=== PATIENT | male | born 1955 | race Caucasian/White ===

== ENCOUNTER 2020-02-20 12:00 | Outpatient (CLI) | payer OTHER ==
--- NOTE | 2020-02-20 12:35 | RAD ---
EXAM: CHEST TWO VIEWS 02/20/2020 12:32 PM HISTORY: Inflammatory polyarthropathy COMPARISON: None. FINDINGS: Lungs: Scarring involving both upper lobes is similar appearing with slight elevation of the hilar r egions. No acute abnormality demonstrated. The lungs remain hyperinflated. Heart: Normal in size and contour. Pulmonary Vessels: Normal. Costophrenic Angles: Clear. Pneumothorax: None. Osseous Structures: Intact. Additional Findings: None. IMPRESSION: No significant acute intrathoracic disease.
== END 2020-02-20 12:01 | disposition home or self-care (01) ==
LOC: BICRAD 12:00
PROVIDERS: ATTEND Internal Medicine Rheumatology
DX: M06.4 Inflammatory polyarthropathy (principal)
CPT/HCPCS: 71046

== ENCOUNTER 2023-03-22 10:59 | Inpatient (IN) | payer MEDICARE ==
[2023-03-22] MEDS ORDERED: dilTIAZem 125 MG/25 ML SDV ONE (11:15)
[2023-03-22] MEDS ORDERED: dilTIAZem 25 MG/5 ML VIAL ONE (11:15)
[2023-03-22 11:31] LABS: #Basophils 0.1 thou/uL (0.0-0.2); #Eosinphils 0.3 thou/uL (0.0-0.7); #Monocytes 1.2 thou/uL (0.11-0.59); #Neutrophils 8.9 thou/uL (1.40-6.50); %Basophils 0.6 % (0.0-1.0); %Eosinophils 2.7 % (0.0-10.0); %Lymphocytes 8.3 % (21.0-51.0); %Monocytes 10.1 % (0.0-10.0); %Neutrophils 77.9 % (42.0-75.0); Hemoglobin 14.2 g/dL (14.0-18.0); Mean Corpuscular HGB CONC 32.6 g/dL (32.0-36.0); Mean Corpuscular Hemoglobin 28.4 pg (27.0-31.0); Mean Platelet Volume 11.1 fL (7.4-10.4); Platelet Count 227 10x3/uL (130-400); RBC Distribution Width 17.5 % (11.5-14.5); White Blood Cell (WBC) Count 11.4 10x3/uL (4.8-10.8)
[2023-03-22 11:50] LABS: ALT (SGPT) 20 U/L (8-55); AST (SGOT) 22 U/L (5-34); Acetaminophen Less than 10 mcg/mL (10.0-30.0); Albumin 3.9 g/dL (3.4-4.8); Alcohol Less than 10.0 mg/dL (Less than 10); Alkaline Phosphatase 28 U/L (40-110); Anion Gap 16 mmol/L (10-20); BUN (Urea Nitrogen) 26 mg/dL (8.4-25.7); Bilirubin, Total 0.7 mg/dL (0.2-1.2); Calc. Creatinine Clearance 0 mL/min (70-130); Calcium 9.3 mg/dL (7.8-10.44); Carbon Dioxide 22 mmol/L (23-31); Chloride 102 mmol/L (98-107); Estimated GFR 80; Globulin 3.6 g/dL (2.4-3.5); Glucose 97 mg/dL (80-115); Potassium 4.7 mmol/L (3.5-5.1); Protein, Total 7.5 g/dL (5.8-8.1); Salicylate Less than 8.0 mg/dL (15.0-30.0); Sodium 135 mmol/L (136-145)
[2023-03-22] MEDS ORDERED: Ondansetron ODT 4 MG TAB PO PRN ×2 (12:57→16:53)
[2023-03-22] MEDS ORDERED: Ondansetron PF 4 MG/2 ML Vial IVP PRN (12:57)
[2023-03-22] MEDS ORDERED: Acetaminophen 650 MG Suppository PR PRN (12:57)
[2023-03-22 13:40] LABS: Bacteria/HPF None Seen HPF (None Seen); Bilirubin Negative (Negative); Blood, Urine Negative (Negative); CAUTI Indications for Culture Pelvic or flank pain; Clarity Clear (Clear); Glucose, Urine (Dipstick) Normal (Negative); Ketone, Urine Trace mg/dL (Negative); Leukocyte Negative Leu/uL (Negative); Nitrite Negative (Negative); Protein, Urine (Dipstick) 30 mg/dL (Neg-Trace); RBC/HPF 0-3 HPF (0-3); Squamous Epithelial 0-3 HPF (0-3); Urobilinogen Normal mg/dL (Less than 2); WBC/HPF 0-3 HPF (0-3); pH, Urine 5.5 (5.0-9.0)
[2023-03-22 13:43] LABS: Urine Culture Reflex No No
[2023-03-22] MEDS ORDERED: Furosemide 20 MG/2 ML VIAL SLOW IVP SCH (13:45)
[2023-03-22 13:47] LABS: Amphetamine Detected (NotDetected); Barbiturates Screen Not Detected (NotDetected); Benzodiazepine Screen Not Detected (NotDetected); Cocaine Metabolite Screen Not Detected (NotDetected); Methadone Not Detected (NotDetected); Methamphetamine Detected (NotDetected); Opiate Screen Not Detected (NotDetected); Oxycodone Screen Not Detected (NotDetected); Phencyclidine (PCP) Not Detected (NotDetected); THC/Cannabinoid Screen Not Detected (NotDetected); Tricyclic Screen Not Detected (NotDetected)
[2023-03-22] MEDS ORDERED: Metoprolol Tartrate 25 MG TAB PO SCH ×2 (14:00→21:00)
[2023-03-22 14:44] VITALS: BMI 18.1
[2023-03-22 15:36] LABS: Troponin I 0.013 ng/mL (< 0.028)
[2023-03-22] MEDS ORDERED: Lorazepam 2 MG/ML VIAL IM PRN (16:53)
[2023-03-22] MEDS ORDERED: Lorazepam 1 MG TAB PO PRN (16:53)
[2023-03-22] MEDS ORDERED: Electrolyte Replacement Protocol 1 EACH FS SCH (17:00)
[2023-03-22] MEDS ORDERED: Multivit, Therapeutic 1 TAB PO SCH (17:15)
[2023-03-22] MEDS ORDERED: Electrolyte Replacement Protocol FS PRN (17:15)
[2023-03-22] MEDS ORDERED: Folic Acid 1 MG TAB PO SCH (17:15)
[2023-03-22] MEDS: Thiamine HCl 200 MG/2 ML VIAL SLOW IVP SCH (17:34)
[2023-03-22 18:16] LABS: Magnesium 1.4 mg/dL (1.6-2.6)
[2023-03-22 18:21] LABS: Troponin I 0.021 ng/mL (< 0.028)
[2023-03-22] MEDS: Metoprolol Tartrate 25 MG TAB PO SCH (21:08)
[2023-03-23 04:51] LABS: #Basophils 0.1 thou/uL (0.0-0.2); #Eosinphils 0.8 thou/uL (0.0-0.7); #Monocytes 1.3 thou/uL (0.11-0.59); #Neutrophils 6.1 thou/uL (1.40-6.50); %Basophils 1.1 % (0.0-1.0); %Eosinophils 8.2 % (0.0-10.0); %Lymphocytes 16.9 % (21.0-51.0); %Monocytes 12.7 % (0.0-10.0); %Neutrophils 60.8 % (42.0-75.0); Mean Corpuscular HGB CONC 32.4 g/dL (32.0-36.0); Mean Corpuscular Hemoglobin 28.1 pg (27.0-31.0); Mean Corpuscular Volume 86.6 fl (78.0-98.0); Mean Platelet Volume 11.9 fL (7.4-10.4); Platelet Count 218 10x3/uL (130-400); RBC Distribution Width 17.6 % (11.5-14.5); Red Blood Cell (RBC) Count 4.63 mill/uL (4.70-6.10); White Blood Cell (WBC) Count 10.1 10x3/uL (4.8-10.8)
[2023-03-23 05:14] LABS: Anion Gap 12 mmol/L (10-20); BUN (Urea Nitrogen) 24 mg/dL (8.4-25.7); Calc. Creatinine Clearance 73 mL/min (70-130); Calcium 8.5 mg/dL (7.8-10.44); Carbon Dioxide 23 mmol/L (23-31); Chloride 103 mmol/L (98-107); Estimated GFR 88; Glucose 93 mg/dL (80-115); Sodium 134 mmol/L (136-145)
[2023-03-23] MEDS ORDERED: Magnesium Sulfate In Water 4 GM in Premix Bag 1 BAG IVPB SCH (08:00)
[2023-03-23] MEDS: Folic Acid 1 MG TAB PO SCH (10:10)
[2023-03-23] MEDS: Multivit, Therapeutic 1 TAB PO SCH (10:10)
[2023-03-23] MEDS: Metoprolol Tartrate 25 MG TAB PO SCH (10:11)
[2023-03-23] MEDS: Furosemide 20 MG/2 ML VIAL SLOW IVP SCH (10:11)
[2023-03-23] MEDS ORDERED: Dronedarone HCl 400 MG TAB PO SCH ×2 (10:30→17:00)
[2023-03-23] MEDS ORDERED: Digoxin 0.5 MG/2 ML AMP SLOW IVP SCH ×2 (10:30→17:45)
[2023-03-23 13:03] LABS: Syphilis Antibody Nonreactive (Nonreactive); Syphilis Antibody Index 0.04 S/CO (<1.00 Non-Reactive)
[2023-03-23] MEDS ORDERED: Lorazepam 1 MG TAB PO PRN (16:53)
[2023-03-23] MEDS: Thiamine HCl 200 MG/2 ML VIAL SLOW IVP SCH (17:38)
[2023-03-23] MEDS ORDERED: Amiodarone 150 MG in Dextrose 5% in Water 100 ML IVPB SCH (17:45)
[2023-03-23] MEDS ORDERED: Communication Order-Pharmacy FS SCH ×2 (18:00)
[2023-03-23] MEDS: Amiodarone 450 MG in Dextrose 5% in Water 250 ML IVPB SCH (19:53)
[2023-03-23] MEDS ORDERED: Metoprolol Tartrate 25 MG TAB PO SCH (21:00)
[2023-03-24] MEDS: Amiodarone 450 MG in Dextrose 5% in Water 250 ML IVPB SCH (03:59)
[2023-03-24 04:53] LABS: #Basophils 0.1 thou/uL (0.0-0.2); #Eosinphils 0.5 thou/uL (0.0-0.7); #Monocytes 1.1 thou/uL (0.11-0.59); #Neutrophils 6.1 thou/uL (1.40-6.50); %Basophils 0.6 % (0.0-1.0); %Eosinophils 5.9 % (0.0-10.0); %Lymphocytes 10.6 % (21.0-51.0); %Monocytes 12.6 % (0.0-10.0); Hemoglobin 14.1 g/dL (14.0-18.0); Mean Corpuscular HGB CONC 32.3 g/dL (32.0-36.0); Mean Corpuscular Hemoglobin 27.8 pg (27.0-31.0); Mean Corpuscular Volume 86.2 fl (78.0-98.0); Mean Platelet Volume 11.3 fL (7.4-10.4); Platelet Count 215 10x3/uL (130-400); RBC Distribution Width 17.4 % (11.5-14.5); Red Blood Cell (RBC) Count 5.07 mill/uL (4.70-6.10); White Blood Cell (WBC) Count 8.7 10x3/uL (4.8-10.8)
[2023-03-24 05:18] LABS: Anion Gap 11 mmol/L (10-20); BUN (Urea Nitrogen) 18 mg/dL (8.4-25.7); Calc. Creatinine Clearance 73 mL/min (70-130); Calcium 8.8 mg/dL (7.8-10.44); Carbon Dioxide 24 mmol/L (23-31); Cardiac Risk 4.1 (Less than 4.5); Chloride 106 mmol/L (98-107); Cholesterol 119 mg/dl (< 200 Desired); Estimated GFR 88; Glucose 89 mg/dL (80-115); HDL Cholesterol 29 mg/dL (>60 Neg Risk); LDL Cholesterol, Calculated 73 mg/dL; Potassium 4.3 mmol/L (3.5-5.1); Sodium 137 mmol/L (136-145); Triglycerides 83 mg/dL (Less than 150)
[2023-03-24] MEDS: Multivit, Therapeutic 1 TAB PO SCH (05:47)
[2023-03-24] MEDS: Folic Acid 1 MG TAB PO SCH (05:48)
[2023-03-24] MEDS ORDERED: Sodium Chloride 0.9% 1,000 ML IV SCH ×2 (06:00→09:04)
[2023-03-24] MEDS ORDERED: Carvedilol 3.125 MG TAB PO SCH ×2 (08:00→17:45)
[2023-03-24] MEDS ORDERED: Heparin 10,000 UNITS/ 10 ML VIAL ONE (08:11)
[2023-03-24] MEDS ORDERED: Lidocaine 1% (PF) 30 ML VIAL ONE (08:11)
[2023-03-24] MEDS ORDERED: Midazolam HCl 2 mg/2 ml Vial ONE (08:17)
[2023-03-24] MEDS ORDERED: fentaNYL 50 mcg/mL 1 mL Vial ONE (08:18)
[2023-03-24] MEDS ORDERED: Sacubitril 24MG/Valsartan 26 MG TAB PO SCH (09:00)
[2023-03-24] MEDS ORDERED: Sodium Chloride 0.9% 200 ML IV PRN (09:03)
[2023-03-24] MEDS ORDERED: Acetaminophen/Codeine 30-300mg Tablet PO PRN (09:03)
[2023-03-24] MEDS ORDERED: Nitroglycerin 0.4 MG TAB (25 Tab Bottle) SL PRN (09:03)
[2023-03-24] MEDS ORDERED: Iopamidol 370 76% 100 ML VIAL ONE (09:09)
[2023-03-24] MEDS ORDERED: Protamine Sulfate 50 MG/5 ML VIAL ONE (09:17)
[2023-03-24] MEDS: Furosemide 20 MG/2 ML VIAL SLOW IVP SCH (10:15)
[2023-03-24] MEDS: Acetaminophen 325 MG TAB PO PRN ×2 (10:17→18:24)
[2023-03-24] MEDS ORDERED: Communication Order-Pharmacy FS SCH (16:47)
[2023-03-24] MEDS ORDERED: Lorazepam 1 MG TAB PO PRN (16:53)
[2023-03-24 17:13] LABS: Hemoglobin 15.4 g/dL (14.0-18.0); Platelet Count 252 10x3/uL (130-400)
[2023-03-24] MEDS: Thiamine HCl 200 MG/2 ML VIAL SLOW IVP SCH (18:29)
[2023-03-24] MEDS: Sacubitril 24MG/Valsartan 26 MG TAB PO SCH (19:55)
[2023-03-24] MEDS: Acetaminophen/Codeine 30-300mg Tablet PO PRN (19:55)
[2023-03-25 05:49] LABS: #Basophils 0.1 thou/uL (0.0-0.2); #Eosinphils 0.5 thou/uL (0.0-0.7); #Neutrophils 11.5 thou/uL (1.40-6.50); %Basophils 0.6 % (0.0-1.0); %Eosinophils 3.4 % (0.0-10.0); %Lymphocytes 7.6 % (21.0-51.0); %Monocytes 12.9 % (0.0-10.0); %Neutrophils 75.2 % (42.0-75.0); Hemoglobin 15.2 g/dL (14.0-18.0); Mean Corpuscular Hemoglobin 28.3 pg (27.0-31.0); Mean Corpuscular Volume 85.7 fl (78.0-98.0); Mean Platelet Volume 11.6 fL (7.4-10.4); Platelet Count 225 10x3/uL (130-400); RBC Distribution Width 17.2 % (11.5-14.5); Red Blood Cell (RBC) Count 5.38 mill/uL (4.70-6.10); White Blood Cell (WBC) Count 15.2 10x3/uL (4.8-10.8)
[2023-03-25 06:12] LABS: Anion Gap 10 mmol/L (10-20); BUN (Urea Nitrogen) 18 mg/dL (8.4-25.7); Calc. Creatinine Clearance 66 mL/min (70-130); Calcium 8.2 mg/dL (7.8-10.44); Carbon Dioxide 25 mmol/L (23-31); Chloride 103 mmol/L (98-107); Estimated GFR 77; Glucose 97 mg/dL (80-115); Potassium 4.1 mmol/L (3.5-5.1); Sodium 134 mmol/L (136-145)
[2023-03-25] MEDS ORDERED: PROPOFOL 200 MG/20 ML VIAL ONE (09:00)
[2023-03-25] MEDS ORDERED: Amiodarone 200 MG TAB PO SCH (09:15)
[2023-03-25] MEDS: Acetaminophen 325 MG TAB PO PRN (10:54)
[2023-03-25] MEDS: Thiamine 100 MG TAB PO SCH (10:55)
[2023-03-25] MEDS: Multivit, Therapeutic 1 TAB PO SCH (10:55)
[2023-03-25] MEDS: Sacubitril 24MG/Valsartan 26 MG TAB PO SCH ×2 (10:55→20:33)
[2023-03-25] MEDS: Folic Acid 1 MG TAB PO SCH (10:56)
[2023-03-25] MEDS: Carvedilol 3.125 MG TAB PO SCH ×2 (11:08→18:34)
[2023-03-25] MEDS: Furosemide 20 MG/2 ML VIAL SLOW IVP SCH (13:17)
[2023-03-25] MEDS ORDERED: Lorazepam 0.5 MG TAB PO PRN (16:53)
[2023-03-25] MEDS: Acetaminophen/Codeine 30-300mg Tablet PO PRN (18:32)
[2023-03-25] MEDS: Amiodarone 200 MG TAB PO SCH (20:32)
[2023-03-25] MEDS: Apixaban 5 MG TAB PO SCH (20:32)
[2023-03-26] MEDS: Acetaminophen/Codeine 30-300mg Tablet PO PRN ×2 (01:45→09:11)
[2023-03-26 04:59] LABS: %Lymphocytes 5.4 % (21.0-51.0); %Neutrophils 76.5 % (42.0-75.0); Hemoglobin 14.3 g/dL (14.0-18.0); Mean Corpuscular HGB CONC 32.3 g/dL (32.0-36.0); Mean Corpuscular Hemoglobin 28.3 pg (27.0-31.0); Mean Corpuscular Volume 87.7 fl (78.0-98.0); Mean Platelet Volume 11.5 fL (7.4-10.4); Platelet Count 216 10x3/uL (130-400); RBC Distribution Width 17.1 % (11.5-14.5); Red Blood Cell (RBC) Count 5.05 mill/uL (4.70-6.10); White Blood Cell (WBC) Count 14.2 10x3/uL (4.8-10.8)
[2023-03-26 05:00] LABS: #Basophils 0.1 thou/uL (0.0-0.2); #Eosinphils 0.4 thou/uL (0.0-0.7); #Neutrophils 10.9 thou/uL (1.40-6.50); %Basophils 0.4 % (0.0-1.0); %Eosinophils 3.1 % (0.0-10.0); %Monocytes 14.2 % (0.0-10.0)
[2023-03-26 05:53] LABS: Chloride 105 mmol/L (98-107); Potassium 4.4 mmol/L (3.5-5.1); Sodium 137 mmol/L (136-145)
[2023-03-26 05:54] LABS: Anion Gap 13 mmol/L (10-20); BUN (Urea Nitrogen) 16 mg/dL (8.4-25.7); Calc. Creatinine Clearance 83 mL/min (70-130); Calcium 8.6 mg/dL (7.8-10.44); Carbon Dioxide 23 mmol/L (23-31); Estimated GFR 96; Glucose 103 mg/dL (80-115)
[2023-03-26 07:44] VITALS: TEMP 97.7
[2023-03-26] MEDS ORDERED: Furosemide 20 MG TAB PO SCH (09:00)
[2023-03-26] MEDS: Multivit, Therapeutic 1 TAB PO SCH (09:10)
[2023-03-26] MEDS: Folic Acid 1 MG TAB PO SCH (09:10)
[2023-03-26] MEDS: Amiodarone 200 MG TAB PO SCH (09:10)
[2023-03-26] MEDS: Apixaban 5 MG TAB PO SCH (09:10)
[2023-03-26] MEDS: Sacubitril 24MG/Valsartan 26 MG TAB PO SCH (09:12)
[2023-03-26] MEDS: Thiamine 100 MG TAB PO SCH (09:12)
[2023-03-26] MEDS: Carvedilol 3.125 MG TAB PO SCH (09:12)
[2023-03-26 15:21] VITALS: BP 118/65
[2023-04-09] MEDS ORDERED: Amiodarone 200 MG TAB PO SCH (09:00)
[2023-04-23] MEDS ORDERED: Amiodarone 200 MG TAB PO SCH (09:00)
== END 2023-03-26 16:40 | disposition home or self-care (01) | DRG 287 ==
LOC: ERS 10:59 → 2NO 13:48
PROVIDERS: ADMIT Internal Medicine; ATTEND Hospitalist
PROC: 4A023N6 Measurement of Cardiac Sampling and Pressure, Right Heart, Percutaneous Approach (ICD-10-PCS; principal; 2023-03-24)
PROC: B2111ZZ Fluoroscopy of Multiple Coronary Arteries using Low Osmolar Contrast (ICD-10-PCS; 2023-03-24)
PROC: 5A2204Z Restoration of Cardiac Rhythm, Single (ICD-10-PCS; 2023-03-24)
PROC: B24BZZ4 Ultrasonography of Heart with Aorta, Transesophageal (ICD-10-PCS; 2023-03-25)
DX: I50.31 Acute diastolic (congestive) heart failure (principal); E44.0 Moderate protein-calorie malnutrition; R64 Cachexia; I42.6 Alcoholic cardiomyopathy; Z68.1 Body mass index [BMI] 19.9 or less, adult; J44.1 Chronic obstructive pulmonary disease with (acute) exacerbation; I48.91 Unspecified atrial fibrillation; F19.10 Other psychoactive substance abuse, uncomplicated; M06.9 Rheumatoid arthritis, unspecified; F17.210 Nicotine dependence, cigarettes, uncomplicated; E87.8 Other disorders of electrolyte and fluid balance, not elsewhere classified; F10.10 Alcohol abuse, uncomplicated; F15.10 Other stimulant abuse, uncomplicated; I34.0 Nonrheumatic mitral (valve) insufficiency; I70.0 Atherosclerosis of aorta; Z71.41 Alcohol abuse counseling and surveillance of alcoholic; Z79.899 Other long term (current) drug therapy; Z98.890 Other specified postprocedural states; Z82.49 Family history of ischemic heart disease and other diseases of the circulatory system
CPT/HCPCS: 36415; 71045; 80048; 80061; 80306; 80307; 81001; 83605; 83735; 83880; 84443; 84484; 85025; 85347; 86780; 92960; 93005; 93010; 93306; 93312; 93454; 93798; 96372; 96374; C1769; C1894; J0282; J1160; J1644; J1650; J1940; J2001; J2250; J2704; J2720; J3010; J3411; J3475; J7050; J7070; Q9967

== ENCOUNTER 2025-05-23 22:46 | Inpatient (IN) | payer MEDICARE ==
[2025-05-24] MEDS ORDERED: Dextrose 50% Abboject 50 ML SYRINGE SLOW IVP PRN (01:48)
[2025-05-24] MEDS ORDERED: Glucagon 1 MG/ML KIT IM PRN (01:48)
[2025-05-24 05:59] LABS: #Basophils 0.06 10x3/uL (0.0-0.2); #Eosinophils 0.05 10x3/uL (0.0-0.7); #Monocytes 1.55 10x3/uL (0.11-0.59); #Neutrophils 9.67 10x3/uL (1.40-6.50); %Basophils 0.5 % (0.0-1.0); %Eosinophils 0.4 % (0.0-10.0); %Lymphocytes 4.6 % (21.0-51.0); %Monocytes 13.0 % (0.0-10.0); %Neutrophils 81.0 % (42.0-75.0); Hematocrit 35.9 % (42.0-52.0); Hemoglobin 11.2 g/dL (14.0-18.0); Mean Corpuscular Hemoglobin 27.1 pg (27.0-31.0); Mean Corpuscular Volume 86.9 fL (78.0-98.0); Platelet Count 302 10x3/uL (130-400); Red Blood Cell (RBC) Count 4.13 mill/uL (4.70-6.10); White Blood Cell (WBC) Count 11.94 10x3/uL (4.8-10.8)
[2025-05-24 06:05] LABS: ALT (SGPT) 19 U/L (Less than 45); AST (SGOT) 34 U/L (11-34); Albumin 3.9 g/dL (3.1-4.5); Alkaline Phosphatase 84 U/L (40-110); Anion Gap 20 mmol/L (10-20); BUN (Urea Nitrogen) 24 mg/dL (8.4-25.7); Bilirubin, Total 0.4 mg/dL (0.3-1.2); Calc. Creatinine Clearance 40 mL/min (70-130); Calcium 9.6 mg/dL (7.8-10.44); Carbon Dioxide 22 mmol/L (23-31); Chloride 103 mmol/L (98-107); Globulin 3.5 g/dL (2.4-3.5); Glucose 98 mg/dL (80-115); Potassium 3.9 mmol/L (3.5-5.1); Sodium 141 mmol/L (136-145)
[2025-05-24] MEDS ORDERED: Bupivacaine 0.25% HCL 30 ML VIAL ONE (11:50)
[2025-05-24] MEDS ORDERED: Lidocaine 1% PF 5 ML VIAL ONE ×2 (12:13→12:23)
[2025-05-24] MEDS ORDERED: PROPOFOL 20 ML ONE (12:13)
[2025-05-24] MEDS ORDERED: fentaNYL PF 100 MCG/2 ML SYRINGE ONE ×2 (12:19→14:22)
[2025-05-24] MEDS ORDERED: SUCCINYLCHOLINE/SOD CL,ISO/PF 200 MG/10 ML SYRINGE FS ONE (12:19)
[2025-05-24] MEDS ORDERED: Etomidate 40 MG (20 mL) VIAL ONE (12:22)
[2025-05-24] MEDS ORDERED: Ketamine In 0.9 % NaCl 50 MG/5 ML SYRINGE ONE (12:22)
[2025-05-24] MEDS ORDERED: Glycopyrrolate 0.2 MG/ML 5 ML SYRINGE ONE (12:25)
[2025-05-24] MEDS ORDERED: Rocuronium Bromide 10 MG/ML (10ML VIAL) ONE (12:25)
[2025-05-24] MEDS ORDERED: Ondansetron PF 4 MG/2 ML Vial ONE (12:44)
[2025-05-24] MEDS ORDERED: SUGAMMADEX SODIUM 200 MG/2 ML VIAL ONE (13:46)
[2025-05-24] MEDS ORDERED: HYDROmorphone 0.5 MG/0.5 ML SYRINGE ONE ×2 (14:31→15:48)
[2025-05-24] MEDS: D5 1/2 NS w/20 mEq KCL 1,000 ML IV SCH ×2 (16:21→20:21)
[2025-05-24] MEDS: Acetaminophen 325 MG TAB PO PRN (18:01)
[2025-05-24] MEDS: Sacubitril 24MG/Valsartan 26 MG TAB PO SCH (20:27)
[2025-05-24] MEDS: Carvedilol 3.125 MG TAB PO SCH (20:27)
[2025-05-24 21:04] LABS: CAUTI Indications for Culture Pelvic or flank pain; Glucose, Urine (Dipstick) 100 mg/dL (Negative); Leukocyte 250 Leu/uL (Negative); Protein, Urine (Dipstick) 30 mg/dL (Neg-Trace); Specific Gravity, Urine 1.025 (1.002-1.036); WBC/HPF Greater than 50 HPF (0-3)
[2025-05-24 21:09] LABS: Bacteria/HPF 1+ HPF (None Seen)
[2025-05-24 21:10] LABS: Urine Culture Reflex Yes Yes
[2025-05-25 06:08] LABS: #Basophils Less than 0.03 10x3/uL (0.0-0.2); #Eosinophils Less than 0.03 10x3/uL (0.0-0.7); #Monocytes 1.24 10x3/uL (0.11-0.59); #Neutrophils 11.69 10x3/uL (1.40-6.50); %Basophils 0.2 % (0.0-1.0); %Eosinophils 0.0 % (0.0-10.0); %Lymphocytes 2.1 % (21.0-51.0); %Monocytes 9.3 % (0.0-10.0); %Neutrophils 88.1 % (42.0-75.0); Hematocrit 30.1 % (42.0-52.0); Hemoglobin 9.2 g/dL (14.0-18.0); Mean Corpuscular Hemoglobin 27.2 pg (27.0-31.0); Mean Corpuscular Volume 89.1 fL (78.0-98.0); Platelet Count 239 10x3/uL (130-400); Red Blood Cell (RBC) Count 3.38 mill/uL (4.70-6.10); White Blood Cell (WBC) Count 13.27 10x3/uL (4.8-10.8)
[2025-05-25 06:27] LABS: ALT (SGPT) 23 U/L (Less than 45); AST (SGOT) 38 U/L (11-34); Albumin 3.3 g/dL (3.1-4.5); Alkaline Phosphatase 71 U/L (40-110); Anion Gap 14 mmol/L (10-20); BUN (Urea Nitrogen) 22 mg/dL (8.4-25.7); Bilirubin, Total 0.3 mg/dL (0.3-1.2); Calc. Creatinine Clearance 53 mL/min (70-130); Calcium 8.5 mg/dL (7.8-10.44); Carbon Dioxide 25 mmol/L (23-31); Chloride 110 mmol/L (98-107); Globulin 3.1 g/dL (2.4-3.5); Glucose 147 mg/dL (80-115); Potassium 4.6 mmol/L (3.5-5.1); Sodium 144 mmol/L (136-145)
[2025-05-25] MEDS: Amiodarone 200 MG TAB PO SCH (08:24)
[2025-05-25] MEDS: Enoxaparin 40 MG (0.4 mL) SYRINGE SC SCH (08:25)
[2025-05-25] MEDS ORDERED: Rosuvastatin 20 MG TAB PO SCH (09:00)
[2025-05-25] MEDS: Rosuvastatin 20 MG TAB PO SCH (21:58)
[2025-05-26] MEDS: Ondansetron PF 4 MG/2 ML Vial IVP PRN (02:00)
[2025-05-26 06:02] LABS: #Basophils 0.04 10x3/uL (0.0-0.2); #Eosinophils 0.26 10x3/uL (0.0-0.7); #Monocytes 1.18 10x3/uL (0.11-0.59); #Neutrophils 7.91 10x3/uL (1.40-6.50); %Basophils 0.4 % (0.0-1.0); %Eosinophils 2.5 % (0.0-10.0); %Lymphocytes 9.8 % (21.0-51.0); %Monocytes 11.3 % (0.0-10.0); %Neutrophils 75.7 % (42.0-75.0); Hematocrit 27.8 % (42.0-52.0); Hemoglobin 8.5 g/dL (14.0-18.0); Mean Corpuscular Hemoglobin 27.3 pg (27.0-31.0); Mean Corpuscular Volume 89.4 fL (78.0-98.0); Platelet Count 220 10x3/uL (130-400); Red Blood Cell (RBC) Count 3.11 mill/uL (4.70-6.10); White Blood Cell (WBC) Count 10.44 10x3/uL (4.8-10.8)
[2025-05-26 06:07] LABS: ALT (SGPT) 29 U/L (Less than 45); AST (SGOT) 59 U/L (11-34); Albumin 3.0 g/dL (3.1-4.5); Alkaline Phosphatase 89 U/L (40-110); Anion Gap 9 mmol/L (10-20); BUN (Urea Nitrogen) 15 mg/dL (8.4-25.7); Bilirubin, Total 0.5 mg/dL (0.3-1.2); Calc. Creatinine Clearance 62 mL/min (70-130); Calcium 8.4 mg/dL (7.8-10.44); Carbon Dioxide 25 mmol/L (23-31); Chloride 109 mmol/L (98-107); Globulin 3.1 g/dL (2.4-3.5); Glucose 106 mg/dL (80-115); Potassium 3.9 mmol/L (3.5-5.1); Sodium 139 mmol/L (136-145)
[2025-05-26] MEDS: Albumin 25% 25 GM (100 mL) BOT IVPB SCH (21:23)
[2025-05-27 05:48] LABS: #Basophils 0.04 10x3/uL (0.0-0.2); #Eosinophils 0.30 10x3/uL (0.0-0.7); #Monocytes 1.02 10x3/uL (0.11-0.59); #Neutrophils 5.74 10x3/uL (1.40-6.50); %Basophils 0.5 % (0.0-1.0); %Eosinophils 3.8 % (0.0-10.0); %Lymphocytes 10.2 % (21.0-51.0); %Monocytes 12.8 % (0.0-10.0); %Neutrophils 72.2 % (42.0-75.0); Hematocrit 25.6 % (42.0-52.0); Hemoglobin 7.7 g/dL (14.0-18.0); Mean Corpuscular Hemoglobin 26.9 pg (27.0-31.0); Mean Corpuscular Volume 89.5 fL (78.0-98.0); Platelet Count 220 10x3/uL (130-400); Red Blood Cell (RBC) Count 2.86 mill/uL (4.70-6.10); White Blood Cell (WBC) Count 7.95 10x3/uL (4.8-10.8)
[2025-05-27 06:05] LABS: ALT (SGPT) 53 U/L (Less than 45); AST (SGOT) 89 U/L (11-34); Albumin 2.8 g/dL (3.1-4.5); Alkaline Phosphatase 152 U/L (40-110); Anion Gap 11 mmol/L (10-20); BUN (Urea Nitrogen) 12 mg/dL (8.4-25.7); Bilirubin, Total 0.4 mg/dL (0.3-1.2); Calc. Creatinine Clearance 68 mL/min (70-130); Calcium 7.9 mg/dL (7.8-10.44); Carbon Dioxide 23 mmol/L (23-31); Chloride 110 mmol/L (98-107); Globulin 2.7 g/dL (2.4-3.5); Glucose 104 mg/dL (80-115); Potassium 3.8 mmol/L (3.5-5.1); Sodium 140 mmol/L (136-145)
[2025-05-27 11:19] VITALS: BP 99/61; TEMP 97.9
== END 2025-05-27 12:05 | disposition home or self-care (01) | DRG 330 ==
LOC: T4-A 05-24 00:25 → SURG A 05-26 11:55
PROVIDERS: ADMIT Surgery; ATTEND Surgery
PROC: 0DB84ZZ Excision of Small Intestine, Percutaneous Endoscopic Approach (ICD-10-PCS; principal; 2025-05-24)
PROC: 0YU50JZ Supplement Right Inguinal Region with Synthetic Substitute, Open Approach (ICD-10-PCS; 2025-05-24)
PROC: 3E03329 Introduction of Other Anti-infective into Peripheral Vein, Percutaneous Approach (ICD-10-PCS; 2025-05-24)
PROC: 30233J1 Transfusion of Nonautologous Serum Albumin into Peripheral Vein, Percutaneous Approach (ICD-10-PCS; 2025-05-26)
DX: K40.31 Unilateral inguinal hernia, with obstruction, without gangrene, recurrent (principal); I50.22 Chronic systolic (congestive) heart failure; N17.9 Acute kidney failure, unspecified; I25.10 Atherosclerotic heart disease of native coronary artery without angina pectoris; F41.9 Anxiety disorder, unspecified; I25.2 Old myocardial infarction; Z98.890 Other specified postprocedural states; Z87.891 Personal history of nicotine dependence; Z79.899 Other long term (current) drug therapy; I25.5 Ischemic cardiomyopathy; I11.0 Hypertensive heart disease with heart failure; E78.5 Hyperlipidemia, unspecified; R91.1 Solitary pulmonary nodule; I48.91 Unspecified atrial fibrillation; R74.01 Elevation of levels of liver transaminase levels
CPT/HCPCS: 36415; 74018; 80053; 81001; 85025; 87086; 88307; 93005; 93010; A4314; A4649; A6258; C1781; J0169; J0665; J1100; J1171; J1650; J2543; J2704; J3480; J3490; J7030; P9047

== ENCOUNTER 2025-08-11 07:55 | Outpatient (CLI) | payer MEDICARE | END 2025-08-11 07:56 | disposition home or self-care (01) | LOC: ULT 07:55 | PROVIDERS: ATTEND Internal Medicine Gastroenterology | DX: Z12.11 Encounter for screening for malignant neoplasm of colon (principal); R10.13 Epigastric pain; D64.9 Anemia, unspecified; R79.89 Other specified abnormal findings of blood chemistry; R93.2 Abnormal findings on diagnostic imaging of liver and biliary tract; Z79.01 Long term (current) use of anticoagulants | CPT/HCPCS: 76705 ==